=== PATIENT | female | born 1980 | race Caucasian/White ===

== ENCOUNTER 2016-12-24 22:06 | Inpatient (IN) | payer OTHER ==
[~2016-12-24] VITALS: Ht 167.6 cm; Wt 60.0 kg
[~2016-12-24 22:06] MED LIST: BUSP10 PO; VENL75 PO; ZYPR2.5T2 PO
[2016-12-24 22:15] VITALS: PULSE 120; RESP 20
[2016-12-24 22:28] VITALS: PULSE 118; RESP 20; TEMP 99.8; O2SAT 97
[2016-12-24] MEDS ORDERED: ACETAMINOPHEN 325 MG TAB PO ONE (22:30)
[2016-12-24] MEDS ORDERED: SODIUM CHLOR 0.9% 1000 ML INJ 1,000 ML IV ONE (22:30)
[2016-12-24] MEDS ORDERED: SODIUM CHLORIDE 0.9% FLUSH 5 ML FLUSH IVF PRN (22:30)
[2016-12-24 23:03] LABS: AUTOMATED NEUTROPHIL # 12.1 TH/MM3 (1.8-7.7); BASOPHIL # 0.1 TH/MM3 (0-0.2); BASOPHIL % 0.6 % (0.0-2.0); EOSINOPHIL # 0.1 TH/MM3 (0-0.4); EOSINOPHIL % 0.4 % (0.0-4.0); HEMATOCRIT 31.4 % (35.0-46.0); HEMO FLAGS DIFF FINAL; LYMPH % 16.8 % (9.0-44.0); LYMPHOCYTE # 2.7 TH/MM3 (1.0-4.8); MEAN CELL VOLUME 84.1 FL (80.0-100.0); MEAN CORPUSCULAR HEMOGLOBIN 28.1 PG (27.0-34.0); MEAN CORPUSCULAR HGB CONC 33.4 % (32.0-36.0); MONO % 7.3 % (0.0-8.0); NEUT % 74.9 % (16.0-70.0); PLATELET COUNT 308 TH/MM3 (150-450); RED BLOOD COUNT 3.73 MIL/MM3 (4.00-5.30); RED CELL DISTRIBUTION WIDTH 12.3 % (11.6-17.2); WHITE BLOOD COUNT 16.2 TH/MM3 (4.0-11.0)
[2016-12-24 23:10] LABS: ALT (GPT) 54 U/L (10-53); ANION GAP 14 MEQ/L (5-15); AST (GOT) 109 U/L (15-37); BICARBONATE 18.8 MEQ/L (21.0-32.0); BLOOD UREA NITROGEN 11 MG/DL (7-18); CHLORIDE 103 MEQ/L (98-107); GLOMERULAR FILTRATION RATE 117 ML/MIN (>89); POTASSIUM 3.6 MEQ/L (3.5-5.1); SODIUM (NA) 136 MEQ/L (136-145)
[2016-12-24 23:12] LABS: ALKALINE PHOSPHATASE 76 U/L (45-117); TOTAL BILIRUBIN ADULT 1.1 MG/DL (0.2-1.0)
[2016-12-24 23:25] LABS: BACTERIA, URINE MOD /hpf; BLOOD, URINE TRACE (NEG); COMMENT (UR) CULTURE INDICATED; CULTURE IF INDICATED CULTURE INDICATED; GLUCOSE,URINE NEG (NEG); HYALINE CAST, URINE 15 /lpf (RARE); KETONE, URINE 10 mg/dL (NEG); MUCUS URINE MOD /lpf (OCC); NITRITE,URINE NEG (NEG); PH, URINE 5.5 (5.0-8.5); SQUAMOUS EPITHELIAL CELL URINE 2 /hpf (0-5); URINE COLOR YELLOW (YELLW/STRAW)
[2016-12-24 23:30] LABS: AMPHETAMINE, URINE POS (NEG); BARBITURATES, URINE NEG (NEG); COCAINE, URINE NEG (NEG)
[2016-12-25] MEDS ORDERED: VANCOMYCIN INJ 1,000 MG in SODIUM CHLOR 0.9% 250 ML INJ 250 ML IV ONE ×2
[2016-12-25] MEDS ORDERED: LEVOFLOXACIN 500 MG PREMIX INJ 100 ML IV ONE
[2016-12-25] MEDS ORDERED: LIDOCAINE HCL 1% 50 ML VIAL INFIL ONE (01:45)
[2016-12-25] MEDS ORDERED: MORPHINE SULFATE 4 MG/ML INJ IV PUSH ONE (02:15)
[2016-12-25] MEDS ORDERED: LORazepam 2 MG/ML VIAL IV PUSH ONE (02:15)
[2016-12-25] MEDS ORDERED: SODIUM CHLORIDE 0.9% FLUSH 5 ML FLUSH FLUSH PRN (03:15)
[2016-12-25] MEDS ORDERED: ONDANSETRON HCL 4 MG/2 ML VIAL IVP PRN (03:15)
[2016-12-25] MEDS ORDERED: HALOPERIDOL LACTATE 5 MG/ML AMP IM ONE (03:15)
[2016-12-25] MEDS ORDERED: Vancomycin Consult Pharmacy 1 EA OTHER SCH (03:15)
[2016-12-25] MEDS ORDERED: BISACODYL 10 MG SUPP PR PRN (03:15)
[2016-12-25] MEDS ORDERED: ACETAMINOPHEN 325 MG TAB PO PRN (03:15)
[2016-12-25 04:00] VITALS: BP 98/57; PULSE 90; RESP 16; TEMP 98.4; O2SAT 98
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
[2016-12-25] MEDS: SODIUM CHLOR 0.9% 1000 ML INJ 1,000 ML IV SCH ×3 (04:29→23:06)
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
[2016-12-25] MEDS: SODIUM CHLORIDE 0.9% FLUSH 5 ML FLUSH FLUSH SCH ×2 (09:00→22:06)
[2016-12-25] MEDS ORDERED: PADIMATE (CHAPSTICK) 4.5 GM TUBE TOP PRN (11:45)
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
[2016-12-25 12:00] VITALS: BP 100/63; PULSE 104; RESP 14; TEMP 97; O2SAT 96
[2016-12-25] MEDS: busPIRone HCL 10 MG TAB PO SCH ×2 (12:29→18:04)
[2016-12-25] MEDS: VANCOMYCIN INJ 850 MG in SODIUM CHLOR 0.9% 250 ML INJ 250 ML IV SCH ×2 (12:29→22:06)
[2016-12-25] MEDS: VENLAFAXINE HCL 75 MG TAB PO SCH (13:46)
[2016-12-25 16:00] VITALS: BP 104/72; PULSE 92; RESP 16; TEMP 97.4; O2SAT 95
[2016-12-25 20:03] VITALS: BP 123/76; PULSE 79; RESP 16; TEMP 98.2; O2SAT 99
--- NOTE | 2016-12-25 20:52 | RADRPT ---
EXAM DATE/TIME: 12/25/2016 17:33 [facility] COMPARISON: No previous studies available for comparison. INDICATIONS : Palpable mass. MEDICAL HISTORY : Methicillin-resistant Staphylococcus aureus. Carcinoma, skin and ovarian. Thyroid disease. Stage V Endometriosis. Herniated disc. Bipolar. Depression. Anxiety. IV drug use. SURGICAL HISTORY : Hysterectomy. Hernia repair. Oophorectomy. ENCOUNTER: Initial ACUITY: 2 weeks PAIN SCORE: 9/10 LOCATION: Left arm. AREA EVALUATED: Left posterolateral forearm. FINDINGS: There is soft tissue swelling in the left arm subcutaneously but no organized fluid collection is pre sent. The findings probably represent some inflammatory changes and possibly early phlegmonous mass. CONCLUSION: 1. Soft tissue swelling of the left forearm without discrete loculated or drainable fluid. Findings a re probably inflammatory in nature. Ismael Najera MD on December 25, 2016 at 20:49 Board Certified Radiologist. This report was verified electronically.
[2016-12-25] MEDS: OLANZapine 5 MG TAB PO SCH (22:07)
[2016-12-25 22:48] VITALS: PULSE 74
[2016-12-26] VITALS (8 sets, daily range): BP systolic 104–127; BP diastolic 65–74; PULSE 64–93; RESP 16–18; TEMP 96.7–98.9; O2SAT 95–99
[2016-12-26] MEDS: LEVOFLOXACIN 750 MG PREMIX INJ 150 ML IV SCH ×2 (00:10→23:00)
[2016-12-26] MEDS ORDERED: PHARMACY ORDERED LAB XX ONE (03:45)
[2016-12-26] MEDS: VANCOMYCIN INJ 850 MG in SODIUM CHLOR 0.9% 250 ML INJ 250 ML IV SCH ×2 (05:55→14:41)
[2016-12-26 06:50] LABS: AUTOMATED NEUTROPHIL # 2.2 TH/MM3 (1.8-7.7); BASOPHIL % 0.8 % (0.0-2.0); EOSINOPHIL # 0.4 TH/MM3 (0-0.4); EOSINOPHIL % 6.9 % (0.0-4.0); HEMATOCRIT 29.2 % (35.0-46.0); HEMO FLAGS DIFF FINAL; LYMPH % 47.1 % (9.0-44.0); MEAN CELL VOLUME 83.4 FL (80.0-100.0); MEAN CORPUSCULAR HEMOGLOBIN 28.1 PG (27.0-34.0); MEAN CORPUSCULAR HGB CONC 33.7 % (32.0-36.0); MONO % 9.9 % (0.0-8.0); NEUT % 35.3 % (16.0-70.0); PLATELET COUNT 330 TH/MM3 (150-450); RED CELL DISTRIBUTION WIDTH 12.5 % (11.6-17.2); WHITE BLOOD COUNT 6.3 TH/MM3 (4.0-11.0)
[2016-12-26 07:30] LABS: ANION GAP 7 MEQ/L (5-15)
[2016-12-26 07:31] LABS: ALKALINE PHOSPHATASE 57 U/L (45-117); ALT (GPT) 41 U/L (10-53); AST (GOT) 52 U/L (15-37); BICARBONATE 27.1 MEQ/L (21.0-32.0); BLOOD UREA NITROGEN 5 MG/DL (7-18); CHLORIDE 110 MEQ/L (98-107); GLOMERULAR FILTRATION RATE 161 ML/MIN (>89); SODIUM (NA) 144 MEQ/L (136-145); TOTAL BILIRUBIN ADULT 0.4 MG/DL (0.2-1.0); VANCOMYCIN TROUGH 10.9 MCG/ML (5.0-10.0)
[2016-12-26 07:47] LABS: POTASSIUM 2.8 MEQ/L (3.5-5.1)
[2016-12-26] MEDS: SODIUM CHLORIDE 0.9% FLUSH 5 ML FLUSH FLUSH SCH (09:00)
[2016-12-26] MEDS: SODIUM CHLOR 0.9% 1000 ML INJ 1,000 ML IV SCH ×2 (09:06→19:06)
[2016-12-26] MEDS: POTASSIUM CHLORIDE 20 MEQ CONTROLLED RELEASE TAB PO SCH ×2 (10:00→11:01)
[2016-12-26] MEDS: busPIRone HCL 10 MG TAB PO SCH ×3 (10:48→18:17)
[2016-12-26] MEDS: VENLAFAXINE HCL 75 MG TAB PO SCH (10:48)
[2016-12-26] MEDS ORDERED: LEVOFLOXACIN 750 MG PREMIX INJ 150 ML IV SCH (16:15)
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
[2016-12-26] MEDS ORDERED: POTASSIUM CL 40 MEQ/30 ML LIQ UDC PO ONE (17:00)
[2016-12-26] MEDS ORDERED: LIDOCAINE 1%/EPINEPHrine 1:100,000 SOLN 30 ML VIAL INFIL ONE (19:30)
[2016-12-26] MEDS: OLANZapine 5 MG TAB PO SCH (21:00)
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
--- NOTE | 2016-12-26 21:13 | PD.PROCEDR ---
Procedure Note Procedure Preoperative diagnosis: Left forearm subcutaneous abscess 2 Postoperative diagnosis: Same Procedure: Incision and drainage of subcutaneous abscess left forearm 2 Procedure: The patient remained in her room. Informed consent was obtained. The both sites in the left forearm were prepped and draped in usual sterile fashion. 1% lidocaine with epinephrine was injected in the subcutaneous skin and subcutaneous tissue at both sites. At the more proximal site a 3 cm incision was created. There was quite a bit of pus expressed and loculations broken up. The cavity was packed with iodoform gauze and a sterile dressing applied. In the more distal site smaller incision created and again pus was drained. Iodoform packing was placed and a dressing applied. Both of these were wrapped to keep a small amount of pressure for tonight for hemostasis. The patient tolerated the procedure well and remained in her bed. The patient' s nurse assisted me during the procedure. Rigo Davis MD Dec 26, 2016 21:12
[2016-12-27] VITALS: BP 109/67; PULSE 73; RESP 17; TEMP 97.8; O2SAT 95
[2016-12-27] MEDS: VANCOMYCIN INJ 850 MG in SODIUM CHLOR 0.9% 250 ML INJ 250 ML IV SCH ×2 (00:56→04:34)
[2016-12-27] MEDS: SODIUM CHLORIDE 0.9% FLUSH 5 ML FLUSH FLUSH SCH ×3 (00:56→20:08)
[2016-12-27] MEDS ORDERED: PHARMACY ORDERED LAB XX ONE ×2 (03:45→11:45)
[2016-12-27 04:00] VITALS: BP 116/75; PULSE 76; RESP 17; TEMP 97.7; O2SAT 98
[2016-12-27] MEDS: SODIUM CHLOR 0.9% 1000 ML INJ 1,000 ML IV SCH (05:06)
[2016-12-27 06:52] LABS: AUTOMATED NEUTROPHIL # 3.3 TH/MM3 (1.8-7.7); BASOPHIL # 0.1 TH/MM3 (0-0.2); BASOPHIL % 0.9 % (0.0-2.0); EOSINOPHIL # 0.4 TH/MM3 (0-0.4); EOSINOPHIL % 5.4 % (0.0-4.0); HEMATOCRIT 30.5 % (35.0-46.0); HEMO FLAGS DIFF FINAL; LYMPH % 35.4 % (9.0-44.0); LYMPHOCYTE # 2.5 TH/MM3 (1.0-4.8); MEAN CELL VOLUME 83.3 FL (80.0-100.0); MEAN CORPUSCULAR HEMOGLOBIN 28.1 PG (27.0-34.0); MEAN CORPUSCULAR HGB CONC 33.7 % (32.0-36.0); MONO % 11.1 % (0.0-8.0); NEUT % 47.2 % (16.0-70.0); PLATELET COUNT 353 TH/MM3 (150-450); RED BLOOD COUNT 3.67 MIL/MM3 (4.00-5.30); RED CELL DISTRIBUTION WIDTH 12.6 % (11.6-17.2); WHITE BLOOD COUNT 7.1 TH/MM3 (4.0-11.0)
[2016-12-27 07:31] LABS: BICARBONATE 27.8 MEQ/L (21.0-32.0); MAGNESIUM 2.1 MG/DL (1.5-2.5); POTASSIUM 3.1 MEQ/L (3.5-5.1)
[2016-12-27 10:00] VITALS: BP 109/71; PULSE 80; RESP 16; TEMP 97.8; O2SAT 96
[2016-12-27] MEDS: busPIRone HCL 10 MG TAB PO SCH ×3 (10:19→18:14)
[2016-12-27] MEDS: VENLAFAXINE HCL 75 MG TAB PO SCH (10:19)
[2016-12-27 12:00] VITALS: BP 118/62; PULSE 71; RESP 16; TEMP 97.6; O2SAT 94
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
[2016-12-27] MEDS ORDERED: POTASSIUM CL 40 MEQ/30 ML LIQ UDC PO ONE (14:30)
[2016-12-27] MEDS: LORazepam 2 MG/ML VIAL IV PUSH PRN (14:37)
[2016-12-27] MEDS: NS + KCL 20 MEQ INJ 1,000 ML IV SCH (15:18)
[2016-12-27 17:00] VITALS: BP 106/74; PULSE 68; RESP 16; TEMP 97.4; O2SAT 98
[2016-12-27 20:00] VITALS: BP 105/66; PULSE 90; PULSE 95; RESP 18; TEMP 97.1; O2SAT 96
[2016-12-27] MEDS: OLANZapine 5 MG TAB PO SCH (20:15)
[2016-12-27] MEDS: LEVOFLOXACIN 750 MG PREMIX INJ 150 ML IV SCH (22:40)
[2016-12-28] VITALS: BP 107/67; PULSE 71; RESP 17; TEMP 97; O2SAT 99
[2016-12-28 04:00] VITALS: BP 111/74; PULSE 81; RESP 17; TEMP 98.6; O2SAT 96
[2016-12-28] MEDS: NS + KCL 20 MEQ INJ 1,000 ML IV SCH (04:19)
[2016-12-28] MEDS: LORazepam 2 MG/ML VIAL IV PUSH PRN (05:40)
[2016-12-28 08:00] VITALS: BP 118/71; PULSE 89; RESP 20; TEMP 96.2; O2SAT 99
[2016-12-28] MEDS: SODIUM CHLORIDE 0.9% FLUSH 5 ML FLUSH FLUSH SCH (09:00)
[2016-12-28] MEDS: VENLAFAXINE HCL 75 MG TAB PO SCH (09:04)
[2016-12-28] MEDS: busPIRone HCL 10 MG TAB PO SCH ×2 (09:07→13:29)
[2016-12-28] MEDS ORDERED: LEVA750T PO (09:41)
[2016-12-28] MEDS ORDERED: OXYC-392 PO (09:41)
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
[2016-12-28 12:00] VITALS: BP 137/95; PULSE 87; RESP 20; TEMP 99.3; O2SAT 95
== END 2016-12-28 15:58 | DRG 854 ==
LOC: NEPC 22:06 → NEDA 12-25 02:50 → EEVIPCON 12-25 02:50 → HOCB 12-25 05:50 → HOCA 12-26 21:29
PROVIDERS: ADMIT Hospitalist; ATTEND Hospitalist
PROC: 0J9F0ZZ Drainage of Left Upper Arm Subcutaneous Tissue and Fascia, Open Approach (ICD-10-PCS; principal; 2016-12-25)
DX: A41.9 Sepsis, unspecified organism (principal); L03.114 Cellulitis of left upper limb; T76.21XA Adult sexual abuse, suspected, initial encounter; N39.0 Urinary tract infection, site not specified; L02.414 Cutaneous abscess of left upper limb; L03.113 Cellulitis of right upper limb; B96.20 Unspecified Escherichia coli [E. coli] as the cause of diseases classified elsewhere; B95.4 Other streptococcus as the cause of diseases classified elsewhere; E86.0 Dehydration; E87.6 Hypokalemia; F31.9 Bipolar disorder, unspecified
CPT/HCPCS: 10060; 76882; 76937; 80048; 80053; 80202; 80307; 80320; 81001; 83735; 84703; 85025; 86403; 87040; 87070; 87077; 87086; 87186; 87205; 96361; 96365; 96368; 96375; J1630; J1956; J2060; J2270; J2405; J3370; J3480; J7030; J7050